=== PATIENT | male | born 1990 | race African-American/Black ===

== ENCOUNTER 2022-11-16 05:30 | Emergency (ER) | payer MEDICAID, SELFPAY ==
[2022-11-16] MEDS ORDERED: Ketorolac Tromethamine 30 MG/ML VIAL ONE (06:08)
[2022-11-16] MEDS ORDERED: Morphine 4 MG/ML VIAL ONE (06:44)
== END 2022-11-16 07:10 | disposition home or self-care (01) ==
LOC: ERS 05:30
DX: S86.011A Strain of right Achilles tendon, initial encounter (principal); F17.210 Nicotine dependence, cigarettes, uncomplicated; X58.XXXA Exposure to other specified factors, initial encounter; Y93.39 Activity, other involving climbing, rappelling and jumping off
CPT/HCPCS: 29515; 96372; 96374; J1885; J2270